=== PATIENT | male | born 1990 | race Caucasian/White ===

== ENCOUNTER 2021-05-19 16:07 | Emergency (ER) | payer OTHER, SELFPAY ==
[2021-05-19 16:17] VITALS: BP 136/74; PULSE 85; RESP 16; TEMP 36.8; O2SAT 99
--- NOTE | 2021-05-19 17:06 | ED.GENADULT ---
HPI - General Adult General Chief complaint: Skin/Abscess/Foreign Body Stated complaint: rash,nausea,diarrhea Time Seen by Provider: 05/19/21 16:52 Source: patient and RN notes reviewed Mode of arrival: ambulatory Limitations: no limitations History of Present Illness HPI narrative: Patient presents today complaining of 8-day history of severely pruritic rash that started on his chest and has moved outward and has now spread to his back, arms, and legs and continues to still spread. Denies any new products, foods, medications. He has tried Benadryl with mild relief. 2 days ago, patient developed body aches, nausea and diarrhea as well as fever up to 101. The fever has resolved, but the nausea and diarrhea persist. Patient states he has diarrhea episodes every couple of hours. He has tried Tylenol and Pepto-Bismol without relief. He did an at home COVID-19 test that was negative. MD complaint: Rash, diarrhea Related Data Home Medications Medication Instructions Recorded Confirmed cetirizine [Zyrtec] 10 mg PO DAILY 05/19/21 05/19/21 fluticasone propionate [Flonase] 2 spray INTRANASAL DAILY 05/19/21 05/19/21 sertraline 50 mg PO DAILY 05/19/21 05/19/21 Allergies Allergy/AdvReac Type Severity Reaction Status Date / Time No Known Allergies Allergy Verified 05/19/21 16:35 Review of Systems Review of Systems: CONSTITUTIONAL: Denies chills, or sweats.+ Body aches, fever EYES: Denies visual changes, redness, or discharge. ENT: Denies rhinorrhea, congestion, sore throat, or otalgia. CARDIOVASCULAR: Denies chest pain, palpitations, or edema. RESPIRATORY: Denies cough or dyspnea. GASTROINTESTINAL: Denies abdominal pain, vomiting. + Nausea, diarrhea GENITOURINARY: Denies dysuria or hematuria. SKIN: Denies wounds.+ Pruritic rash MUSCULOSKELETAL: Denies back pain, joint pain, or myalgia. NEUROLOGIC: Denies headache, numbness, tingling, or weakness. PSYCH: Denies depression or anxiety. PMFSH Comments At time of signature, I have reviewed and agree with nursing past medical, surgical, social and family history unless otherwise noted. Please see nursing chart for further information. There is no relevant family history pertinent to the presenting complaint Exam Narrative: GENERAL: Well-appearing, well-nourished, and in no acute distress. HEAD: Normocephalic, atraumatic. EYES: EOMI. No redness or drainage. Conjunctivae normal. ENT: Mucous membranes pink and moist. Nares clear. No rhinorrhea. TMs normal bilaterally. Throat normal. Uvula midline. NECK: Normal AROM. Supple. No lymphadenopathy. CHEST: No respiratory distress. Clear to auscultation. HEART: Regular rate and rhythm. No murmur appreciated. Normal peripheral pulses. ABDOMEN: Soft, nontender, nondistended, normal active bowel sounds. MUSCULOSKELETAL: No bony tenderness. EXTREMITIES: Normal range of motion. No edema. SKIN: Warm, dry. Capillary refill normal. Normal skin turgor. Widespread mildly erythematous maculopapular rash over the entire chest and back as well as upper legs and upper arms. NEURO: No focal deficits. Alert and oriented x3. Gait steady. PSYCH: Normal affect. No signs of depression or anxiety. Course Vital Signs Vital signs: Vital Signs Temperature 98.3 F 05/19/21 16:17 Pulse Rate 85 05/19/21 16:17 Respiratory Rate 16 05/19/21 16:17 Blood Pressure 136/74 05/19/21 16:17 Pulse Oximetry 99 05/19/21 16:17 Temperature 98.3 F 05/19/21 16:17 Pulse Rate 85 05/19/21 16:17 Respiratory Rate 16 05/19/21 16:17 Blood Pressure 136/74 05/19/21 16:17 Pulse Oximetry 99 05/19/21 16:17 Reviewed. Pt has been instructed to follow up with his PCP regarding his elevated blood pressure today. Medical Decision Making Differential Diagnosis Differential Diagnosis: Viral syndrome, viral exanthem, scarlet fever, influenza Vital Signs Vital Signs: Vital Signs Temperature 98.3 F 05/19/21 16:17 Pulse Rate 85 05/19/21
== END 2021-05-19 17:39 | disposition home or self-care (01) ==
PROVIDERS: Emergency Provider Nurse Practitioner
DX: L30.9 Dermatitis, unspecified (principal); B34.9 Viral infection, unspecified; F41.9 Anxiety disorder, unspecified; F32.A Depression, unspecified
CPT/HCPCS: 87081; 87804; 87880; 99203; G0463